=== PATIENT | female | born 1950 | race Caucasian/White ===

== ENCOUNTER 2021-06-10 17:00 | Emergency (ER) | payer MEDICARE, OTHER, SELFPAY ==
[2021-06-10 17:01] VITALS: BP 146/79; PULSE 89; RESP 20; TEMP 36.7; O2SAT 97; BMI 22.4
--- NOTE | 2021-06-10 17:17 | XR_ITS ---
PROCEDURE INFORMATION: Exam: XR Right Hand Exam date and time: 06/10/2021 5:17 PM Age: 71 years old Clinical indication: Injury or trauma; Bleeding/hemorrhage and blunt trauma (contusions or hematomas); Injury details: Kicked by horse on right hand. TECHNIQUE: Imaging protocol: XR Right hand. Views: 3 or more views. COMPARISON: No relevant prior studies available. 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 Moderate degenerative changes of the 2nd through 5th proximal interphalangeal joints and 5th finger distal interphalangeal joint, manifest by moderate joint space narrowing and bulky marginal osteophyte formation. No acute fracture or dislocation. Soft tissues: Mild soft tissue swelling of the thumb, 2nd, and 3rd fingers. IMPRESSION: 1. Mild soft tissue swelling of the thumb, 2nd, and 3rd fingers. 2. No acute fracture or dislocation.
--- NOTE | 2021-06-10 17:17 | XR_ITS ---
PROCEDURE INFORMATION: Exam: XR Right Wrist Exam date and time: 06/10/2021 5:17 PM Age: 71 years old Clinical indication: Injury or trauma; Bleeding/hemorrhage and blunt trauma (contusions or hematomas); Injury details: Kicked by horse in right wrist, right hand. TECHNIQUE: Imaging protocol: XR Right wrist. Views: 1 or 2 views. COMPARISON: CR XR HAND RT MIN 3V 06/10/2021 5:23 PM FINDINGS: Bones/joints: Mild degenerative changes of the radiocarpal joint. Moderate degenerative changes of the triscaphe and 1st carpometacarpal joints, manifest by moderate joint space narrowing, subchondral sclerosis, and osteophyte formation, similar to comparison study. No acute fracture or dislocation. Soft tissues: Mild dorsal hand soft tissue swelling. IMPRESSION: No acute fracture or dislocation.
--- NOTE | 2021-06-10 17:20 | [facility].EDGENADL ---
ED Disposition Clinical Impression: Laceration of right hand Qualifiers: Encounter type: initial encounter Foreign body presence: without foreign body Qualified Code(s): S61.411A - Laceration without foreign body of right hand, initial encounter Sprain of hand, right Qualifiers: Encounter type: initial encounter Qualified Code(s): S63.91XA - Sprain of unspecified part of right wrist and hand, initial encounter Disposition: Home, Self-Care Condition on Discharge: Good Instructions: DI for Laceration Repair Referrals: Medardo Nunez [Primary Care Provider] - - Critical Care Critical Care Time: No Attestation: On , the high probability of a clinically significant, sudden or life threatening deterioration of the following system(s) required my full and direct attention, intervention and personal management. The time I documented below is in addition to time spent performing reported procedures but includes the following listed in this critical care notation. Medical Decision Making - Medical Records Medical records reviewed: Yes: I reviewed the patient's medical records. - Manuel Inquiry Pt receiving controlled substance: Yes Manuel was queried for this patient: No Reason not queried -: Manuel login issues Risks and benefits of using a controlled substance: were discussed with pt by me Vital Signs: 06/10/21 17:01 Temperature 98.1 F Temperature Source Oral Pulse Rate [Left Radial] 89 Respiratory Rate 20 Blood Pressure [Left Arm] 146/79 H Blood Pressure Mean [Left Arm] 101 Blood Pressure Source [Left Arm] Automatic Cuff Blood Pressure Position [Left Arm] Sitting 02 Sat by Pulse Oximetry 97 Oxygen Delivery Method Room Air Orders (Tests/Meds): ED MEDICATIONS Discontinued Medications Generic Name Dose Route Start Last Admin Trade Name Freq PRN Reason Stop Dose Admin Hydrocodone Bitart/Acetaminophen 1 tab 06/10/21 17:17 06/10/21 17:25 Apap/Hydrocodone 325mg/7.5mg Tab PO 06/10/21 17:18 1 tab ONCE ONE Administration ORDERS Category Date Time Status XR hand RT min 3V Stat Exams 06/10/21 17:17 Taken XR wrist RT 2V Stat Exams 06/10/21 17:17 Taken - Radiology Data #1 Image(s): Wrist, Hand Image Reviewed: Yes I reviewed the patient's radiology results, Yes I reviewed the patient's radiology image, Yes I reviewed the patient's radiology image w/the ED provider Preliminary Findings: No Fracture Seen - Reevaluation(s) Time: 19:13 Reevaluation #1: On reevaluation, patient pain is improved. Tolerated suture closure well. Did place the patient in a soft cast. She will follow up with PCP in 48 hours. Given strict return precautions. Verbalized understanding. Medical Decision Narrative: 71-year-old female presented to the emergency department after sustaining injury to her right hand. Patient was hit by a horse. She does have a large laceration that will require repair. Concern for fracture. Imaging obtained. General Adult HPI - General Chief complaint: Wound/Laceration Stated complaint: kicked by horse R top wrist 1630 Time Seen by Provider: 06/10/21 17:10 Mode of Arrival: Ambulatory Limitations: No Limitations Description of Symptoms (Recalled from ER Triage Doc. by RN): Pt presents with skin tear to right hand and right wrist after she reports that her horse kicked her in her arm. - History of Present Illness HPI narrative: Is a 71-year-old female presented to the emergency department with injury to her right hand and wrist. The patient states that she was accidentally kicked by her horse when she was tending to them. She has a large skin tear to the dorsal aspect of the right hand as well as the right forearm. Patient is complaining of some mild pain in the area. Is worse when she moves it. She is left-hand dominant. Up-to-date on tetanus immunization. She denies any other injuries. No trauma to the head or neck. No syncope. Patient denies any chest pain or
--- NOTE | 2021-06-10 17:36 | PC.NURSE ---
Returned from Rad
[2021-06-10 19:31] VITALS: BP 144/84; PULSE 68; RESP 16; TEMP 36.7; O2SAT 99
== END 2021-06-10 19:31 | disposition home or self-care (01) ==
PROVIDERS: Emergency Provider Emergency Medicine; PCP Family Medicine
DX: S61.411A Laceration without foreign body of right hand, initial encounter (principal); S63.91XA Sprain of unspecified part of right wrist and hand, initial encounter; W55.12XA Struck by horse, initial encounter; Y92.79 Other farm location as the place of occurrence of the external cause; Z88.2 Allergy status to sulfonamides
CPT/HCPCS: 12002; 73100; 73130; 99282

== ENCOUNTER 2024-06-11 14:06 | Outpatient (CLI) | payer MEDICARE, SELFPAY ==
--- NOTE | 2024-06-11 14:14 | US_ITS ---
PROCEDURE INFORMATION: Exam: US Left Breast, Complete MG Bilateral Diagnostic Breast Tomosynthesis Exam date and time: 06/11/2024 2:24 PM Age: 74 years old Clinical indication: Concern for left breast lump. Technologist notes patient has a knot in the armpit area unable to include in images and that the breast is hard and painful. TECHNIQUE: Imaging protocol: Complete ultrasound of all four quadrants of the left breast and the retroareolar regions, including ultrasound of the axilla when performed. Bilateral Diagnostic tomosynthesis and 2D mammography including computer-aided detection (CAD) when performed. Unilateral or bilateral exam. COMPARISON: None.If prior mammograms are provided, I am happy to add an addendum. FINDINGS: MAMMOGRAPHY: Breast mammogram findings: Breast composition: There are scattered areas of fibroglandular density. Mass: Questionable 0.6 cm oval mass/asymmetry in the left inner breast, anterior 3rd, retroareolar, not seen in the MLO projection. Architectural distortion: None. Calcifications: No suspicious calcifications. Asymmetric density: None. Skin thickening: None. Axillary adenopathy: None. Other: Very dense, extensively calcified subpectoral, silicone implants. The upper left implant shows a flattened contour with adjacent extracapsular densities, partly calcified, suggesting extracapsular rupture, MRI is helpful in evaluation of implant integrity. ULTRASOUND: Breast ultrasound findings: Left sonography, all 4 quadrants, retroareolar and axilla. At the palpable concern in the lower outer quadrant 4 o'clock 10 cm from the nipple, echogenic region with prominent shadowing 2.0 cm which appears related to extra capsular rupture and/or calcification. Partly visualized implant. At 6 o'clock retroareolar, oval hypoechoic avascular mass measuring 0.3 x 0.6 x 0.3 cm - this may correspond to the mammographic mass/asymmetry. Sonographically unremarkable axillary lymph node. Also, no images indicating sonography is armpit concern. IMPRESSION: See comments Palpable concern indicated in the left axilla, not specifically imaged on sonography, patient will be recalled for additional targeted left sonography. Palpable concern in the lower outer quadrant 4 o'clock indicated on sonography corresponds to prominent shadowing, likely related to extra capsular implant rupture and calcification. (Findings overall most compatible with left extracapsular implant rupture). Prominent shadowing on sonography limits evaluation for additional soft tissue mass. If possible, adding MRI optimized for implant rupture and breast MRI optimized mass assessment will be most helpful. Otherwise, correlate clinically, and if not otherwise indicated, suggest six-month follow-up left sonography. Further evaluation of a palpable abnormality should be based on clinical grounds regardless of radiographic findings or lack thereof. Probably benign 6 o'clock retroareolar sonographic mass which likely corresponds to the mammographic finding. This can also be evaluated with MRI suggested above, and if not possible, suggest six-month follow-up left diagnostic mammogram and sonography unless otherwise clinically indicated. ASSESSMENT: BI-RADS Category 0: Incomplete: Need Additional Imaging Evaluation.
== END 2024-06-11 23:59 | disposition home or self-care (01) ==
PROVIDERS: PCP Family Medicine; Visit Provider Family Medicine
DX: N63.23 Unspecified lump in the left breast, lower outer quadrant (principal); T85.49XA Other mechanical complication of breast prosthesis and implant, initial encounter
CPT/HCPCS: 76641; 77062; 77066; G0279

== ENCOUNTER 2025-01-05 09:42 | Outpatient (CLI) | payer MEDICARE, SELFPAY ==
[2025-01-05 17:17] LABS: Basophils # 0.1 K/mm3 (0-0.2); Basophils % 1.1 % (0.1-2.0); Eosinophils # 0.3 Kmm3 (0.0-0.4); Eosinophils % 6.3 % (0.1-12.0); Hematocrit 40.9 % (37.0-47.0); Hemoglobin 13.3 g/dL (12.2-16.2); Immature Granulocytes # 0 10^3uL; Immature Granulocytes % 0 %; Lymphocytes # 1.3 K/mm3 (0.7-4.5); Lymphocytes % 29.8 % (10-50); Mean Corpuscular HGB Conc 32.5 g/dL (31.8-35.4); Mean Corpuscular Hemoglobin 30.6 pg (27.0-31.2); Mean Corpuscular Volume 94.2 fl (81-99); Mean Platelet Volume 10.1 fl (7.4-10.4); Monocytes # 0.4 K/mm3 (0.1-1.0); Monocytes % 9.2 % (1.7-9.3); Neutrophils # 2.4 K/mm3 (1.8-7.8); Neutrophils % 53.6 % (37.0-80.0); Nucleated Red Blood Cells # 0 10^3/uL; Nucleated Red Blood Cells % 0 %; Platelet Count 241 K/mm3 (142-424); Red Blood Count 4.34 M/mm3 (4.20-5.40); Red Cell Distribution Width 12.8 % (11.5-17.5); Red Cell Distribution Width-SD 44.4 fL; White Blood Count 4.5 K/mm3 (4.8-10.8)
[2025-01-05 17:30] LABS: Albumin Level 4.2 g/dl (3.5-5.0); Chloride 108 mmol/L (98-107); Potassium 5.1 mmoL/L (3.5-5.1); Sodium 138 mmol/L (136-145)
[2025-01-05 17:33] LABS: Alanine Aminotransferase 20 U/L (12-78); Albumin/Globulin Ratio 1.7 (1.1-1.8); Alkaline Phosphatase 85 U/L (38-126); Anion Gap 7.1 mEq/L (5-15); Aspartate Amino Transferase 38 U/L (14-36); Bilirubin,Total 0.4 mg/dl (0.2-1.3); Blood Urea Nitrogen 16 mg/dl (7-17); Carbon Dioxide 28 mmol/L (22.0-30.0); Cholesterol 239 mg/dl (140-200); Estimated Glomerular Filt Rate 82 ml/min (>60); GFR (African American) 99 ML/MIN (>60); Globulin 2.5 g/dL (1.3-3.2); Total Protein,Serum 6.7 g/dl (6.3-8.2); Triglycerides 63 mg/dl (30-150); VLDL Cholesterol 13 mg/dL (0-40)
[2025-01-05 17:34] LABS: Calcium 9.3 mg/dl (8.4-10.2); Chol/HDL Ratio 2.4 (1-3.5); Glucose 85 mg/dl (74-100); HDL Cholesterol 99 mg/dl (40-60)
[2025-01-05 17:44] LABS: Direct LDL Cholesterol 110.95 mg/dL (100-129)
[2025-01-05 18:05] LABS: Thyroid Stimulating Hormone 0.87 uIU/mL (0.465-4.68)
[2025-01-05 18:14] LABS: HIV Combo NEGATIVE (Negative)
[2025-01-05 23:45] LABS: Hepatitis C Ab Qual. W/ RFX NEGATIVE (Negative)
[2025-01-05 23:56] LABS: Hemoglobin A1C 5.2 % (4.0-6.0)
== END 2025-01-05 23:59 | disposition home or self-care (01) ==
LOC: LAB.DROPOF 01-06 08:50
PROVIDERS: PCP Family Medicine; Visit Provider Family Medicine
DX: Z13.228 Encounter for screening for other metabolic disorders (principal); Z13.29 Encounter for screening for other suspected endocrine disorder; Z01.89 Encounter for other specified special examinations
CPT/HCPCS: 80053; 80061; 82306; 83036; 84443; 85025; 86803; 87389